=== PATIENT | male | born 1945 ===

== ENCOUNTER 2022-09-03 21:01 | Inpatient (IN) | payer MEDICARE, OTHER ==
[~2022-09-03] VITALS: Ht 182.9 cm; Wt 85.3 kg
--- NOTE | 2022-09-03 21:19 | NUR ---
Dr. Goldsmith at bedside for MSE.
[2022-09-03] MEDS ORDERED: LORA0.5T48 PO (21:23)
[2022-09-03] MEDS ORDERED: INDO50CA91 PO (21:23)
[2022-09-03] MEDS ORDERED: BUDE10.2 IH (21:23)
[2022-09-03] MEDS ORDERED: POTA20TA11 PO (21:23)
[2022-09-03] MEDS ORDERED: ASPI81TA31 PO (21:23)
[2022-09-03] MEDS ORDERED: SERT50TA PO (21:23)
[2022-09-03] MEDS ORDERED: ATOR80TA PO (21:23)
[2022-09-03] MEDS ORDERED: TERA10CA4 PO (21:23)
[2022-09-03] MEDS ORDERED: DIPH25TA25 PO (21:23)
[2022-09-03] MEDS ORDERED: FURO20TA4 PO (21:23)
[2022-09-03] MEDS ORDERED: HYDR-3976 PO (21:23)
[2022-09-03] MEDS ORDERED: METO-356 PO (21:23)
[2022-09-03] MEDS ORDERED: TIOT18CA3 IH (21:23)
[2022-09-03] MEDS ORDERED: ALBU2.5V38 IH (21:23)
[2022-09-03] MEDS ORDERED: CHOLECALCIFEROL 1,000 UNIT TABLET PO SCH (21:30)
[2022-09-03] MEDS ORDERED: CHOLECALCIFEROL 1,000 UNIT TABLET ONE (21:36)
[2022-09-03 22:05] LABS: THYROID STIMULATING HORMONE 2.004 mIU/mL (0.358-3.740)
[2022-09-03 22:22] LABS: MAGNESIUM 2.1 mg/dL (1.8-2.4)
--- NOTE | 2022-09-03 22:30 | NUR ---
Pt medically cleared by Dr. Goldsmith.
--- NOTE | 2022-09-03 23:00 | NUR ---
Report given to Josselyn [facility].
[2022-09-03 23:45] VITALS: BP 143/98
[2022-09-04] MEDS ORDERED: MAG HYDROX/AL HYDROX/SIMETH 30 ML LIQUID UDC PO PRN (01:00)
[2022-09-04] MEDS ORDERED: MAGNESIUM HYDROXIDE 30 ML LIQUID UDC PO PRN (01:00)
--- NOTE | 2022-09-04 01:00 | NUR ---
Admission note : Patient is a 77 year old male, was brought to [facility] by ambulance from [facility] in [place]. The patient is on a 510 for GD. Per the hold, the patient walked from his home to a local elementary school and stated " My is missing and my stepdaughter and her are trying to kill me". The patient is in early stages of dementia and unable to verbalize a plan of care for himself. Upon face to face evaluation, the patient is calm and cooperative but tangental. He continually would ruminate on his past experiences in the [employer] in [place] all during the interview process. The patient showed poor insight to his memory problems and was easily confusing and intertwining his past memories with his present reality. According to the records, the is elderly and in the hospital at this time. It seems that this patient is the primary caregiver and still drives. The patient has multiple medical problems including insomnia. This medical underwriter was able to engage in meaningful conversation with the patient but it was difficult because the patient is hard off hearing and gets easily confused. The VS are stable, a Patients Rights handbook and Advisement were provided. Orientation to the unit and the plan of care were discussed. The patient is cooperative , pleasant, compliant and interesting to talk too. Safety Stratiges are in place at this time. No acute issues noted at this time. Reorientation and reassurance will be given as needed.
[2022-09-04] MEDS: TEMAZEPAM 7.5 MG CAPSULE PO PRN (01:21)
[2022-09-04] MEDS ORDERED: RIVA10TA PO (01:53)
[2022-09-04] MEDS ORDERED: SERT50TA PO (01:53)
[2022-09-04] MEDS ORDERED: METO25TA3 PO (01:53)
[2022-09-04] MEDS ORDERED: TERA10CA4 PO (01:53)
[2022-09-04] MEDS ORDERED: TIOT4MIS2 IH (01:53)
[2022-09-04] MEDS ORDERED: POTA-88 PO (01:53)
--- NOTE | 2022-09-04 07:00 | NUR ---
GPS Nursing notes: Patient sitting in his bed, reading, friendly on approach, speech is clear, stated he slept well. Denies pain or discomforts at this time. Fall and safety precaution implemented, emotional support provided.
[2022-09-04 07:50] VITALS: BP 126/87
[2022-09-04] MEDS ORDERED: ALBUTEROL SULFATE 2.5 MG/3 ML NEBU NEB PRN (12:00)
--- NOTE | 2022-09-04 13:44 | NUR ---
GPS Nursing Notes: Patient in his room, cooperative, isolative, denies pain or discomforts, denies SI/HI/VH/AH, patient stated , "They are bringing Antennas with wires". 1:1 verbal interacting with patient, emotional support provided.
--- NOTE | 2022-09-04 14:45 | NUR ---
RAHUL Family Contact: RAHUL spoke with pt's sister, Cecelia ([phone]) regarding pt's current status. Cecelia stated she lives in [place] and will be involved via telephone. Cecelia was grateful for the teams help for the pt. per Cecelia, he lives with his , Kelsey ([phone]) and he is self-responsible. Cecelia stated a SNF would be great for him due to his delusions. RAHUL will continue to work with pt, his family and MD to ensure a safe and proper discharge plan.
--- NOTE | 2022-09-04 15:04 | NUR ---
RAHUL Initial Discharge Note: Pt currently resides at [address] [facility] [place] [address] ([phone]) with his , Kelsey ([phone]). Pt's sister, Cecelia is also involved in pt's care ([phone]). Pt's plan is to continue care at home. RAHUL will continue to work with pt, family and MD to ensure a safe and proper discharge plan.
[2022-09-04 16:32] VITALS: BP 139/86
--- NOTE | 2022-09-04 16:42 | NUR ---
GPS: Nursing noted: 5250 [facility] Request: Staff gave capy of 5250 to patient. Explained 5250 and informed patient that a certification review hearing will be held within four days and patient 's right advocate will call him to provide assistance with the hearing and to answer any of his questions. The court has been notified of this certification via [facility] portal on this day.
[2022-09-04] MEDS: ACETAMINOPHEN 325 MG TABLET PO PRN (16:49)
[2022-09-04] MEDS: ALBUTEROL SULFATE 2.5 MG/3 ML NEBU NEB PRN (17:35)
[2022-09-04 19:57] VITALS: BP 145/97
[2022-09-04] MEDS: SERTRALINE HCL 50 MG TABLET PO SCH (20:37)
[2022-09-04] MEDS: ATORVASTATIN 40 MG TABLET PO SCH (20:37)
[2022-09-04] MEDS: TERAZOSIN 5 MG CAPSULE PO SCH (20:38)
[2022-09-04] MEDS ORDERED: FLUTICASONE/SALMETEROL 250/50 INHALER INH SCH (21:00)
--- NOTE | 2022-09-05 07:00 | NUR ---
GPS Nursing note: Patient is in room quiet, isolative, denies pain or discomforts at this time. Will continue to monitor.
[2022-09-05] MEDS: ACETAMINOPHEN 325 MG TABLET PO PRN ×2 (07:09→19:46)
[2022-09-05 07:30] VITALS: BP 121/81
[2022-09-05] MEDS: POTASSIUM CHLORIDE 20 MEQ TAB.PRT.SR PO SCH (09:06)
[2022-09-05] MEDS: METOPROLOL SUCCINATE XL 25 MG TAB.SR.24H PO SCH (09:07)
[2022-09-05] MEDS: ASPIRIN 81 MG TAB.CHEW PO SCH (09:07)
[2022-09-05] MEDS: FUROSEMIDE 20 MG TABLET PO SCH (09:07)
[2022-09-05] MEDS: FLUTICASONE/VILANTEROL 1 EACH BLST.W.DEV INH SCH (09:07)
--- NOTE | 2022-09-05 15:08 | NUR ---
Firearms Report: Electromyographic Technician completed and submitted a [employer] firearms report for 5150 grave disability certifications. A copy of report has been placed in patient chart.
[2022-09-05 15:27] VITALS: BP 108/66
[2022-09-05 20:00] VITALS: BP 103/74
[2022-09-05] MEDS: ATORVASTATIN 40 MG TABLET PO SCH (20:32)
[2022-09-05] MEDS: SERTRALINE HCL 50 MG TABLET PO SCH (20:32)
[2022-09-05] MEDS: TERAZOSIN 5 MG CAPSULE PO SCH (20:42)
--- NOTE | 2022-09-05 21:33 | NUR ---
PATIENT TOOK ALL 2100 MEDICATIONS ORDERED. NO ISSUES. PATIENT INFORMS RN OF PATIENT'S STORY OF HOW HE GOT INTO [facility]. RN NOTED. ALL NEEDS MET AT THIS TIME. NO ACUTE DISTRESS. ENDORSED CONTINUATION OF CARE TO TOM KING.
[2022-09-05] MEDS: TEMAZEPAM 7.5 MG CAPSULE PO PRN (22:35)
[2022-09-06 07:30] VITALS: BP 118/88
[2022-09-06] MEDS: POTASSIUM CHLORIDE 20 MEQ TAB.PRT.SR PO SCH (08:49)
[2022-09-06] MEDS: FUROSEMIDE 20 MG TABLET PO SCH (08:49)
[2022-09-06] MEDS: FLUTICASONE/VILANTEROL 1 EACH BLST.W.DEV INH SCH (08:50)
[2022-09-06] MEDS: ACETAMINOPHEN 325 MG TABLET PO PRN ×3 (08:50→21:21)
[2022-09-06] MEDS: ASPIRIN 81 MG TAB.CHEW PO SCH (08:51)
[2022-09-06] MEDS: METOPROLOL SUCCINATE XL 25 MG TAB.SR.24H PO SCH (08:53)
[2022-09-06 15:19] VITALS: BP 94/63
--- NOTE | 2022-09-06 19:03 | NUR ---
Up on approach pt seems calm but depressed, guarded. Pt is cooperative with nursing care and compliant with medications. Pt was encourage to ventilate feeling and stated Im worried about my being in a different hospital". hospitality workers spoke with pt sister and told pt that his sister said his is doing well. Reassurance provided. Encourage pt to eat meals in the dinning room and pt was compliant. Continue to monitor for safety , Continue with treatment plan.
[2022-09-06 20:10] VITALS: BP 104/71
[2022-09-06] MEDS: SERTRALINE HCL 50 MG TABLET PO SCH (21:21)
[2022-09-06] MEDS: TERAZOSIN 5 MG CAPSULE PO SCH (21:21)
[2022-09-06] MEDS: ATORVASTATIN 40 MG TABLET PO SCH (21:22)
[2022-09-06] MEDS: TEMAZEPAM 7.5 MG CAPSULE PO PRN (22:46)
--- NOTE | 2022-09-06 22:53 | NUR ---
Pt stated he is having trouble falling asleep d/t the occasional restlessness, screaming, and yelling in the unit. He requested a sleeping aid/sleeping pill. This nurse gave Temazepam 7.5 mg po prn for help with insomnia. Safety strategies in place. Will continue to monitor.
[2022-09-07 07:30] VITALS: BP 114/69
[2022-09-07 07:47] LABS: HEMATOCRIT 30.1 % (36.7-47.1); MEAN CORPUSCULAR HEMOGLOBIN 24.1 uug (23.8-33.4); MEAN CORPUSCULAR VOLUME 77.5 fL (73.0-96.2); PLATELET COUNT (AUTO) 215 K/uL (152-348)
[2022-09-07] MEDS: ASPIRIN 81 MG TAB.CHEW PO SCH (08:15)
[2022-09-07] MEDS: FLUTICASONE/VILANTEROL 1 EACH BLST.W.DEV INH SCH (08:15)
[2022-09-07] MEDS: METOPROLOL SUCCINATE XL 25 MG TAB.SR.24H PO SCH (08:16)
[2022-09-07] MEDS: POTASSIUM CHLORIDE 20 MEQ TAB.PRT.SR PO SCH (08:16)
[2022-09-07] MEDS: FUROSEMIDE 20 MG TABLET PO SCH (08:16)
[2022-09-07 08:36] LABS: THYROID STIMULATING HORMONE 1.804 mIU/mL (0.358-3.740)
[2022-09-07 08:51] LABS: ASPARTATE AMINOTRANSFERASE 27 U/L (15-37); BILIRUBIN,TOTAL 0.3 mg/dL (0.2-1.0); CARBON DIOXIDE 28 mmol/L (21-32); CHLORIDE 108 mmol/L (98-107); CHOLESTEROL 101 mg/dL (<200); CREATININE 0.8 mg/dL (0.6-1.3); GLUCOSE 91 mg/dL (74-106); HDL CHOLESTEROL 55 mg/dL (40-60); MAGNESIUM 1.9 mg/dL (1.8-2.4); PHOSPHOROUS 3.1 mg/dL (2.5-4.9); POTASSIUM 3.8 mmol/L (3.5-5.1); TRIGLYCERIDES 49 MG/DL (30-150); UREA NITROGEN, BLOOD 22 mg/dL (7-18)
[2022-09-07 09:43] LABS: ALANINE AMINOTRANSFERASE 41 U/L (16-63); ALKALINE PHOSPHATASE 82 U/L (50-136)
[2022-09-07] MEDS: ACETAMINOPHEN 325 MG TABLET PO PRN ×2 (09:56→16:35)
[2022-09-07 15:24] VITALS: BP 132/66
--- NOTE | 2022-09-07 15:54 | NUR ---
Patient had a court hearing today, milk condenser Pako Bobo gave 14 Day hold probable cause for GD only.
--- NOTE | 2022-09-07 18:30 | NUR ---
Pt is calm on approach, Pleasantly confused and forgetful at times. Pt is ambulatory Self care. Pt is compliant with care and medications.Pt attends group activities and socializes with peers. Continue to monitor for safety continue with treatment plan.
[2022-09-07 20:01] VITALS: BP 133/80
[2022-09-07] MEDS: TERAZOSIN 5 MG CAPSULE PO SCH (20:23)
[2022-09-07] MEDS: ATORVASTATIN 40 MG TABLET PO SCH (20:23)
[2022-09-07] MEDS: SERTRALINE HCL 50 MG TABLET PO SCH (20:23)
[2022-09-07] MEDS: TEMAZEPAM 7.5 MG CAPSULE PO PRN (21:05)
--- NOTE | 2022-09-07 21:49 | NUR ---
GPS: Pt.is anxious at times. Re-assured and re-directed prn. Med.compliant. Insight and judgment remains impaired. Safety emphasized. Will continue to monitor. Denies wanting to harm self when asked by staff.
[2022-09-08] MEDS: ACETAMINOPHEN 325 MG TABLET PO PRN ×3 (00:29→17:52)
[2022-09-08 08:00] VITALS: BP 131/79
[2022-09-08] MEDS: POTASSIUM CHLORIDE 20 MEQ TAB.PRT.SR PO SCH (10:01)
[2022-09-08] MEDS: ASPIRIN 81 MG TAB.CHEW PO SCH (10:01)
[2022-09-08] MEDS: FUROSEMIDE 20 MG TABLET PO SCH (10:01)
[2022-09-08] MEDS: METOPROLOL SUCCINATE XL 25 MG TAB.SR.24H PO SCH (10:03)
[2022-09-08] MEDS: FLUTICASONE/VILANTEROL 1 EACH BLST.W.DEV INH SCH (10:04)
[2022-09-08] MEDS: CYANOCOBALAMIN 1,000 MCG TABLET PO SCH (10:05)
--- NOTE | 2022-09-08 14:02 | NUR ---
RAHUL Family Contact: RAHUL spoke with pt's sister, Cecelia ([phone]) regarding pt's current status. Cecelia is appreciative of the pt's care. Cecelia is aware pt's hold is extended to 14 day. Pt will return home to his upon discharge with his own taxi transportation per pt.
[2022-09-08 16:00] VITALS: BP 120/73
--- NOTE | 2022-09-08 18:27 | NUR ---
pt is awake, able to state his need. requested PRN Tylenol twice for head ache which was effective.
[2022-09-08] MEDS: SERTRALINE HCL 50 MG TABLET PO SCH (20:46)
[2022-09-08] MEDS: ATORVASTATIN 40 MG TABLET PO SCH (20:46)
[2022-09-08] MEDS: TERAZOSIN 5 MG CAPSULE PO SCH (20:57)
[2022-09-08] MEDS: TEMAZEPAM 7.5 MG CAPSULE PO PRN (21:05)
[2022-09-08 21:07] VITALS: BP 103/72
[2022-09-08] MEDS: LORAZEPAM 1 MG TABLET PO PRN (23:39)
[2022-09-09] MEDS: ACETAMINOPHEN 325 MG TABLET PO PRN ×3 (03:05→23:07)
--- NOTE | 2022-09-09 06:06 | NUR ---
Pt was restless, anxious, not able to sleep. Pt asked for a sleeping PRN but it was not effective. Pt asked to have and anxiety PRN and was able to sleep for only 2 Hours. Reassurance Provided. Fall and safety measures put in place. Continue to monitor for safety, continue with treatment plan
[2022-09-09 07:42] VITALS: BP 114/81
[2022-09-09] MEDS: ASPIRIN 81 MG TAB.CHEW PO SCH (08:10)
[2022-09-09] MEDS: METOPROLOL SUCCINATE XL 25 MG TAB.SR.24H PO SCH (08:10)
[2022-09-09] MEDS: FUROSEMIDE 20 MG TABLET PO SCH (08:10)
[2022-09-09] MEDS: CYANOCOBALAMIN 1,000 MCG TABLET PO SCH (08:10)
[2022-09-09] MEDS: POTASSIUM CHLORIDE 20 MEQ TAB.PRT.SR PO SCH (08:10)
[2022-09-09] MEDS: FLUTICASONE/VILANTEROL 1 EACH BLST.W.DEV INH SCH (08:10)
[2022-09-09 16:17] VITALS: BP 123/77
[2022-09-09 20:00] VITALS: BP 117/75
[2022-09-09] MEDS: SERTRALINE HCL 50 MG TABLET PO SCH (20:24)
[2022-09-09] MEDS: MELATONIN 3 MG TABLET PO SCH (20:24)
[2022-09-09] MEDS: TERAZOSIN 5 MG CAPSULE PO SCH (20:25)
[2022-09-09] MEDS: ATORVASTATIN 10 MG TABLET PO SCH (21:29)
[2022-09-09] MEDS: TEMAZEPAM 7.5 MG CAPSULE PO PRN (21:29)
[2022-09-10] MEDS: ALBUTEROL SULFATE 2.5 MG/3 ML NEBU NEB PRN (04:31)
[2022-09-10 07:49] VITALS: BP 103/77
[2022-09-10] MEDS: POTASSIUM CHLORIDE 20 MEQ TAB.PRT.SR PO SCH (08:49)
[2022-09-10] MEDS: FUROSEMIDE 20 MG TABLET PO SCH (08:49)
[2022-09-10] MEDS: ASPIRIN 81 MG TAB.CHEW PO SCH (08:50)
[2022-09-10] MEDS: CYANOCOBALAMIN 1,000 MCG TABLET PO SCH (08:50)
[2022-09-10] MEDS: METOPROLOL SUCCINATE XL 25 MG TAB.SR.24H PO SCH (08:51)
[2022-09-10] MEDS: FLUTICASONE/VILANTEROL 1 EACH BLST.W.DEV INH SCH (08:52)
[2022-09-10] MEDS: CYANOCOBALAMIN 1000 MCG/ML VIAL IM SCH (08:52)
[2022-09-10] MEDS: ACETAMINOPHEN 325 MG TABLET PO PRN ×2 (09:04→21:14)
--- NOTE | 2022-09-10 14:34 | NUR ---
Received Pt is awake, cooperative, calm on approach, cannot say for sure why he is here. Pt was compliant with medications, requested PRN Tylenol for back pain which was effective.
[2022-09-10 16:20] VITALS: BP 123/77
[2022-09-10 20:06] VITALS: BP 116/73
[2022-09-10] MEDS: SERTRALINE HCL 50 MG TABLET PO SCH (21:14)
[2022-09-10] MEDS: MELATONIN 3 MG TABLET PO SCH (21:14)
[2022-09-10] MEDS: ATORVASTATIN 10 MG TABLET PO SCH (21:14)
[2022-09-10] MEDS: TERAZOSIN 5 MG CAPSULE PO SCH (21:16)
[2022-09-10] MEDS: TEMAZEPAM 7.5 MG CAPSULE PO PRN (22:05)
--- NOTE | 2022-09-11 06:16 | NUR ---
Pt is restless on approach and can be confused and forgetful at times. Pt does not have a bailable plan of care. Pt is compliant with medications and nursing care. Pt ask for a sleeping PRN but pt was able to sleep only 4.0 hours on and off. Pt got up and took a shower. Reassurance provided, safety measures in place. Continue to monitor for safety, continue with treatment plan.
[2022-09-11] MEDS: ACETAMINOPHEN 325 MG TABLET PO PRN ×3 (06:40→18:58)
--- NOTE | 2022-09-11 07:30 | NUR ---
GPS Nursing notes: Patient is awake, by nurses station this morning with no S/S of distress noted. Will continue to monitor.
[2022-09-11] MEDS: FUROSEMIDE 20 MG TABLET PO SCH (08:04)
[2022-09-11] MEDS: ASPIRIN 81 MG TAB.CHEW PO SCH (08:04)
[2022-09-11] MEDS: POTASSIUM CHLORIDE 20 MEQ TAB.PRT.SR PO SCH (08:05)
[2022-09-11] MEDS: METOPROLOL SUCCINATE XL 25 MG TAB.SR.24H PO SCH (08:05)
[2022-09-11] MEDS: CYANOCOBALAMIN 1,000 MCG TABLET PO SCH (08:06)
[2022-09-11] MEDS: FLUTICASONE/VILANTEROL 1 EACH BLST.W.DEV INH SCH (08:06)
[2022-09-11 08:22] VITALS: BP 130/98
[2022-09-11] MEDS: CYANOCOBALAMIN 1000 MCG/ML VIAL IM SCH (08:28)
--- NOTE | 2022-09-11 12:18 | NUR ---
RAHUL Family Contact: RAHUL spoke with pt's sister, Cecelia ([phone]) regarding pt's current status. Cecelia is appreciative of the pt's care.
--- NOTE | 2022-09-11 13:39 | NUR ---
GPS Nursing notes/ Protective Clothing Issuer Visit: Patient up and about, able to makes needs known, no S/S of distress noted. Patient was seen by Protective Clothing Issuer this morning, per Protective Clothing Issuer, toe nails were trim by Protective Clothing Issuer, patient tolerated well, no new orders by Protective Clothing Issuer at this time.
[2022-09-11 16:24] VITALS: BP 113/71
--- NOTE | 2022-09-11 18:31 | NUR ---
GPS Nursing notes: Patient is cooperative, medication compliance, denies pain or discomforts at this time, participated with groups, following directions. Denies SI/HI/AH/DIAZ, patient is worry about his the is in the hospital, patient spoke with family member to re-assure everting was ok. Emotional support provided. Will continue to monitor.
[2022-09-11 19:57] VITALS: BP 109/62
[2022-09-11] MEDS: ATORVASTATIN 10 MG TABLET PO SCH (20:41)
[2022-09-11] MEDS: SERTRALINE HCL 50 MG TABLET PO SCH (20:41)
[2022-09-11] MEDS: MELATONIN 3 MG TABLET PO SCH (20:41)
[2022-09-11] MEDS: TERAZOSIN 5 MG CAPSULE PO SCH (20:41)
[2022-09-11] MEDS: TEMAZEPAM 7.5 MG CAPSULE PO PRN (22:09)
[2022-09-12] MEDS: ACETAMINOPHEN 325 MG TABLET PO PRN ×2 (01:58→10:35)
[2022-09-12] MEDS: ALBUTEROL SULFATE 2.5 MG/3 ML NEBU NEB PRN (05:11)
--- NOTE | 2022-09-12 06:28 | NUR ---
GPS: Pt.continues to sleep poorly last night despite receiving a sleeping pill. Remains med.compliant and cooperative with his plan of care. Denies wanting to harm self. Safe environment provided. Needs attended.
[2022-09-12 08:13] VITALS: BP 123/82
[2022-09-12] MEDS: ASPIRIN 81 MG TAB.CHEW PO SCH (08:43)
[2022-09-12] MEDS: FUROSEMIDE 20 MG TABLET PO SCH (08:43)
[2022-09-12] MEDS: POTASSIUM CHLORIDE 20 MEQ TAB.PRT.SR PO SCH (08:43)
[2022-09-12] MEDS: CYANOCOBALAMIN 1,000 MCG TABLET PO SCH (08:44)
[2022-09-12] MEDS: METOPROLOL SUCCINATE XL 25 MG TAB.SR.24H PO SCH (08:45)
[2022-09-12] MEDS: FLUTICASONE/VILANTEROL 1 EACH BLST.W.DEV INH SCH (08:45)
--- NOTE | 2022-09-12 10:40 | NUR ---
Patient is given Tylenol 650 mg at 10:35 for back pain, will be monitored for effectiveness.
--- NOTE | 2022-09-12 12:23 | NUR ---
RAHUL Family Contact: RAHUL spoke with pt's sister, Cecelia ([phone]) regarding pt's current status and discharge plan. Per Cecelia, pt will be provided private vehicle transportation by his stepdaughter, Shahnaz ([phone]) upon discharge. Cecelia is aware that pt does not have a discharge date yet.
--- NOTE | 2022-09-12 15:44 | NUR ---
Received patient sleeping in his room. Patient is cooperative with nursing care, compliant with medications, talkative, sociable, confused and disoriented at times, forgetful. Patient is A/O X 2 to person. Patient requires minimal assistance with ADL. Reassurance given. Fall and safety precautions implemented.
[2022-09-12 16:20] VITALS: BP 105/64
[2022-09-12 20:00] VITALS: BP 119/78
[2022-09-12] MEDS: MELATONIN 3 MG TABLET PO SCH (20:39)
[2022-09-12] MEDS: ATORVASTATIN 10 MG TABLET PO SCH (20:39)
[2022-09-12] MEDS: TERAZOSIN 5 MG CAPSULE PO SCH (20:40)
[2022-09-12] MEDS: TEMAZEPAM 7.5 MG CAPSULE PO PRN (22:56)
[2022-09-13] MEDS: ALBUTEROL SULFATE 2.5 MG/3 ML NEBU NEB PRN (06:44)
[2022-09-13 07:54] VITALS: BP 123/93
[2022-09-13] MEDS: ASPIRIN 81 MG TAB.CHEW PO SCH (08:34)
[2022-09-13] MEDS: POTASSIUM CHLORIDE 20 MEQ TAB.PRT.SR PO SCH (08:35)
[2022-09-13] MEDS: CYANOCOBALAMIN 1,000 MCG TABLET PO SCH (08:35)
[2022-09-13] MEDS: METOPROLOL SUCCINATE XL 25 MG TAB.SR.24H PO SCH (08:36)
[2022-09-13] MEDS: FUROSEMIDE 20 MG TABLET PO SCH (08:36)
[2022-09-13] MEDS: FLUTICASONE/VILANTEROL 1 EACH BLST.W.DEV INH SCH (08:37)
[2022-09-13] MEDS: ACETAMINOPHEN 325 MG TABLET PO PRN ×2 (08:43→15:53)
--- NOTE | 2022-09-13 08:49 | NUR ---
Patient is given Tylenol 650 mg at 08:43 for lower back pain, will be monitored for effectiveness.
[2022-09-13 15:29] VITALS: BP 115/75
--- NOTE | 2022-09-13 15:39 | NUR ---
Received patient awake in his room. Patient is talkative, cooperative with nursing care, compliant with medications, needy, engage in social activities. Patient is A/O X 2 to person, place. Patient is encourage to vent feeling and emotions. Fall and safety precautions implemented.
--- NOTE | 2022-09-13 15:56 | NUR ---
Patient is given Tylenol 650 mg at 15:53 for lower back pain, will be monitored for effectiveness.
[2022-09-13 20:05] VITALS: BP 115/71
[2022-09-13] MEDS: MELATONIN 3 MG TABLET PO SCH (20:21)
[2022-09-13] MEDS: TERAZOSIN 5 MG CAPSULE PO SCH (20:21)
[2022-09-13] MEDS: SERTRALINE HCL 100 MG TABLET PO SCH (20:21)
[2022-09-13] MEDS: ATORVASTATIN 10 MG TABLET PO SCH (20:21)
[2022-09-13] MEDS: TEMAZEPAM 7.5 MG CAPSULE PO PRN (21:41)
[2022-09-13] MEDS: LORAZEPAM 1 MG TABLET PO PRN (23:02)
[2022-09-14] MEDS: ALBUTEROL SULFATE 2.5 MG/3 ML NEBU NEB PRN ×2 (04:38→21:31)
[2022-09-14 07:30] VITALS: BP 119/62
[2022-09-14] MEDS: FUROSEMIDE 20 MG TABLET PO SCH (09:33)
[2022-09-14] MEDS: ASPIRIN 81 MG TAB.CHEW PO SCH (09:33)
[2022-09-14] MEDS: POTASSIUM CHLORIDE 20 MEQ TAB.PRT.SR PO SCH (09:34)
[2022-09-14] MEDS: CYANOCOBALAMIN 1,000 MCG TABLET PO SCH (09:34)
[2022-09-14] MEDS: FLUTICASONE/VILANTEROL 1 EACH BLST.W.DEV INH SCH (09:36)
[2022-09-14] MEDS: METOPROLOL SUCCINATE XL 25 MG TAB.SR.24H PO SCH (09:36)
[2022-09-14] MEDS: ACETAMINOPHEN 325 MG TABLET PO PRN (13:24)
[2022-09-14 15:33] VITALS: BP 96/63
--- NOTE | 2022-09-14 17:13 | NUR ---
Patient is talkative, cooperative with nursing care, compliant with medications, forgetful and confused at times, engage in group activities, interacts with peers. Tylenol 650 mg is given at 13:24 for lower back pain, will be monitored for effectiveness. Active listening provided. Fall and safety precautions implemented.
[2022-09-14 20:14] VITALS: BP 100/58
[2022-09-14] MEDS: MELATONIN 3 MG TABLET PO SCH (21:13)
[2022-09-14] MEDS: TERAZOSIN 5 MG CAPSULE PO SCH (21:13)
[2022-09-14] MEDS: ATORVASTATIN 10 MG TABLET PO SCH (21:13)
[2022-09-14] MEDS: SERTRALINE HCL 100 MG TABLET PO SCH (21:13)
--- NOTE | 2022-09-14 21:34 | NUR ---
Patient had an episode of vomiting this shift at 2125 hours. Pt also stated that he had thrown up on the previous shift/earlier today. This nurse contacted his doctor (Dr. Qureshi) for orders. New order given: Zofran 4 mg po q 6 hrs for n/v. Pt took the medication without any negative symptoms. Safety measures implemented. Will continue to monitor.
[2022-09-14] MEDS: ONDANSETRON HCL 4 MG TABLET PO PRN (21:50)
[2022-09-15] MEDS: ACETAMINOPHEN 325 MG TABLET PO PRN ×3 (04:22→18:02)
[2022-09-15] MEDS: ONDANSETRON HCL 4 MG TABLET PO PRN (04:23)
--- NOTE | 2022-09-15 04:30 | NUR ---
Pt requested medication for a headache and for nausea. Gave Tylenol 650mg po prn, and Zofran. Will continue to monitor.
[2022-09-15 08:17] VITALS: BP 86/59
[2022-09-15] MEDS: METOPROLOL SUCCINATE XL 25 MG TAB.SR.24H PO SCH (09:00)
[2022-09-15] MEDS: FUROSEMIDE 20 MG TABLET PO SCH (09:00)
[2022-09-15] MEDS: POTASSIUM CHLORIDE 20 MEQ TAB.PRT.SR PO SCH (09:04)
[2022-09-15] MEDS: CYANOCOBALAMIN 1,000 MCG TABLET PO SCH (09:04)
[2022-09-15] MEDS: ASPIRIN 81 MG TAB.CHEW PO SCH (09:04)
[2022-09-15] MEDS: FLUTICASONE/VILANTEROL 1 EACH BLST.W.DEV INH SCH (09:06)
--- NOTE | 2022-09-15 12:55 | NUR ---
Received patient is awake, cooperative, calm on approach, cannot say for sure why he is here. Pt was compliant with medications, requested PRN Tylenol for back pain which was effective.
[2022-09-15 15:56] VITALS: BP 105/96
[2022-09-15 19:30] VITALS: BP 101/61
[2022-09-15] MEDS: MELATONIN 3 MG TABLET PO SCH (21:27)
[2022-09-15] MEDS: TERAZOSIN 5 MG CAPSULE PO SCH (21:27)
[2022-09-15] MEDS: ATORVASTATIN 10 MG TABLET PO SCH (21:27)
[2022-09-15] MEDS: SERTRALINE HCL 100 MG TABLET PO SCH (21:27)
[2022-09-15] MEDS: LORAZEPAM 1 MG TABLET PO PRN (23:37)
[2022-09-16] MEDS: TEMAZEPAM 7.5 MG CAPSULE PO PRN ×2 (01:27→21:09)
--- NOTE | 2022-09-16 01:28 | NUR ---
Pt requested medication to help with falling asleep. Gave Temazepam 7.5mg po prn for insomnia. Will continue to monitor.
[2022-09-16 07:59] VITALS: BP 103/67
--- NOTE | 2022-09-16 08:11 | NUR ---
GPS Nursing notes: Patient is up this morning, waling with steady gait, denies pain or discomforts at this time.
[2022-09-16] MEDS: CYANOCOBALAMIN 1,000 MCG TABLET PO SCH (08:32)
[2022-09-16] MEDS: POTASSIUM CHLORIDE 20 MEQ TAB.PRT.SR PO SCH (08:32)
[2022-09-16] MEDS: FUROSEMIDE 20 MG TABLET PO SCH (08:33)
[2022-09-16] MEDS: ASPIRIN 81 MG TAB.CHEW PO SCH (08:33)
[2022-09-16] MEDS: FLUTICASONE/VILANTEROL 1 EACH BLST.W.DEV INH SCH (08:34)
[2022-09-16] MEDS: METOPROLOL SUCCINATE XL 25 MG TAB.SR.24H PO SCH (08:36)
[2022-09-16] MEDS: ACETAMINOPHEN 325 MG TABLET PO PRN ×3 (10:11→22:06)
--- NOTE | 2022-09-16 13:16 | NUR ---
GPS Nursing notes: Patient up and about, denies pain or discomforts at this time, gait is steady. follows directions, medications compliance. Fall and safety precautions implemented, emotional support provided. Will continue to monitor.
[2022-09-16 16:35] VITALS: BP 105/70
[2022-09-16] MEDS: ATORVASTATIN 10 MG TABLET PO SCH (20:09)
[2022-09-16] MEDS: MELATONIN 3 MG TABLET PO SCH (20:09)
[2022-09-16] MEDS: SERTRALINE HCL 100 MG TABLET PO SCH (20:10)
[2022-09-16] MEDS: TERAZOSIN 5 MG CAPSULE PO SCH (20:10)
[2022-09-16 20:46] VITALS: BP 92/65
[2022-09-16] MEDS: LORAZEPAM 1 MG TABLET PO PRN (22:55)
--- NOTE | 2022-09-17 04:19 | NUR ---
Pt is calm on approach . Pt does not have a bailable plan of care. Pt is compliant with medications and nursing care. Pt ask for a sleeping PRN but is not affective pt only slept 3.45 hours on and off. Reassurance provided, safety measures in place. Continue to monitor for safety, continue with treatment plan.
[2022-09-17] MEDS: ALBUTEROL SULFATE 2.5 MG/3 ML NEBU NEB PRN (05:09)
[2022-09-17 08:02] VITALS: BP 98/71
[2022-09-17] MEDS: ASPIRIN 81 MG TAB.CHEW PO SCH (08:37)
[2022-09-17] MEDS: CYANOCOBALAMIN 1,000 MCG TABLET PO SCH (08:37)
[2022-09-17] MEDS: FUROSEMIDE 20 MG TABLET PO SCH (08:38)
[2022-09-17] MEDS: POTASSIUM CHLORIDE 20 MEQ TAB.PRT.SR PO SCH (08:38)
[2022-09-17] MEDS: FLUTICASONE/VILANTEROL 1 EACH BLST.W.DEV INH SCH (08:39)
[2022-09-17] MEDS: METOPROLOL SUCCINATE XL 25 MG TAB.SR.24H PO SCH (08:39)
[2022-09-17] MEDS: ACETAMINOPHEN 325 MG TABLET PO PRN ×2 (10:23→16:16)
--- NOTE | 2022-09-17 14:19 | NUR ---
Received patient is awake, cooperative, calm on approach. Pt was compliant with medications, requested PRN Tylenol for back pain and headache which was effective. will continue monitoring for safety ,will be discharged home in am.
[2022-09-17 16:20] VITALS: BP 104/63
[2022-09-17 20:07] VITALS: BP 124/80
[2022-09-17] MEDS: ATORVASTATIN 10 MG TABLET PO SCH (20:32)
[2022-09-17] MEDS: MELATONIN 3 MG TABLET PO SCH (20:32)
[2022-09-17] MEDS: TERAZOSIN 5 MG CAPSULE PO SCH (20:34)
[2022-09-17] MEDS: SERTRALINE HCL 100 MG TABLET PO SCH (20:34)
[2022-09-17] MEDS: TEMAZEPAM 7.5 MG CAPSULE PO PRN (22:10)
--- NOTE | 2022-09-17 22:10 | NUR ---
Patient requested to have a sleeping pill. Reminded of the medications purpose and gave Temazepam 7.5mg po prn for insomnia. Will continue to monitor.
[2022-09-17] MEDS: LORAZEPAM 1 MG TABLET PO PRN (23:43)
--- NOTE | 2022-09-17 23:43 | NUR ---
Patient requested Ativan for increased anxiety. Pt did not fall asleep after giving Temazepam roughly 100 mins ago. Gave Lorazepam 1mg po prn. Safety measures in place. Will continue to monitor.
[2022-09-18] MEDS: ACETAMINOPHEN 325 MG TABLET PO PRN ×2 (01:25→08:40)
[2022-09-18] MEDS: ALBUTEROL SULFATE 2.5 MG/3 ML NEBU NEB PRN (04:12)
--- NOTE | 2022-09-18 04:48 | NUR ---
Patient requested for prn breathing treatment. No s/s of resp distress at time of request. O2Sat 98% room air. Notified RT for Ventolin prn nebulizer treatment. Will continue to monitor.
--- NOTE | 2022-09-18 06:58 | NUR ---
Although AOx3, pt can still be intrusive and needy at times asking for prn medications before the time allows. Even after re-explanation of his scheduled and as-needed medications frequency, patient still asks before hand. Will continue to remind/re-educate.
[2022-09-18 08:04] VITALS: BP 113/81
[2022-09-18] MEDS: CYANOCOBALAMIN 1,000 MCG TABLET PO SCH (08:40)
[2022-09-18] MEDS: ASPIRIN 81 MG TAB.CHEW PO SCH (08:40)
[2022-09-18] MEDS: POTASSIUM CHLORIDE 20 MEQ TAB.PRT.SR PO SCH (08:41)
[2022-09-18] MEDS: FUROSEMIDE 20 MG TABLET PO SCH (08:41)
[2022-09-18 08:42] VITALS: BP 113/81
[2022-09-18] MEDS: FLUTICASONE/VILANTEROL 1 EACH BLST.W.DEV INH SCH (08:42)
[2022-09-18] MEDS: METOPROLOL SUCCINATE XL 25 MG TAB.SR.24H PO SCH (08:42)
--- NOTE | 2022-09-18 09:45 | NUR ---
RAHUL Discharge Note: Pt will be discharged home located at [address] [place] [address] via pts [employer]son ([phone]) private vehicle transportation at 11AM. RAHUL spoke with Shahnaz and pts sister, Cecelia ([phone]) who are aware and agreeable with the discharge plan. Pt is aware and agreeable with discharge plan. Pt is alert and oriented x4, and is cleared by the psychiatrist, Dr. Qureshi and DNP, Dr. Mcdermott to return home. RAHUL will provide [facility] by MDs request upon discharge and additional psychiatrist referrals on Sunday09/18/22. Pt denies any suicidal or homicidal ideation. Pt will follow-up with his outpatient Psychiatrist assigned at [facility] after consultation per Raciel in the office located at [address] [facility] [address], [place] [address] ([phone]) and primary Doctor. Pt presents with calm mood and congruent affect. PHARMACY: [facility] [address] [place] [phone] ([phone].
--- NOTE | 2022-09-18 11:21 | NUR ---
Discharged patient home via pts [employer] private vehicle transportation at 11AM. SW spoke with Shahnaz and pts sister, Cecelia who are aware and agreeable with the discharge plan. Pt is aware and agreeable with discharge plan. Pt is alert and oriented x4, and is cleared by the psychiatrist, Dr. Qureshi and DNP, Dr. Mcdermott to return home. SW will provide [facility] by MDs request upon discharge and additional psychiatrist referrals on Sunday09/18/22. Pt denies any suicidal or homicidal ideation. Pt will follow-up with his outpatient Psychiatrist .discharge instruction given to patient and personal belonging returned to patient.
== END 2022-09-18 11:45 | disposition home health service (06) | DRG 885 ==
LOC: ER 21:03 → GPS 21:27
PROVIDERS: ADMIT Psychiatry & Neurology Psychiatry; ATTEND Nurse Practitioner Acute Care
PROC: 0HBRXZZ Excision of Toe Nail, External Approach (ICD-10-PCS; principal; 2022-09-11)
DX: F33.9 Major depressive disorder, recurrent, unspecified (principal); I11.0 Hypertensive heart disease with heart failure; I50.32 Chronic diastolic (congestive) heart failure; E03.9 Hypothyroidism, unspecified; F41.9 Anxiety disorder, unspecified; L60.3 Nail dystrophy; M79.675 Pain in left toe(s); M79.674 Pain in right toe(s); E78.5 Hyperlipidemia, unspecified; I25.10 Atherosclerotic heart disease of native coronary artery without angina pectoris; J44.9 Chronic obstructive pulmonary disease, unspecified; N40.0 Benign prostatic hyperplasia without lower urinary tract symptoms; E53.8 Deficiency of other specified B group vitamins; G47.00 Insomnia, unspecified; Z62.810 Personal history of physical and sexual abuse in childhood; Z87.891 Personal history of nicotine dependence; H91.93 Unspecified hearing loss, bilateral; R79.89 Other specified abnormal findings of blood chemistry; F03.90 Unspecified dementia, unspecified severity, without behavioral disturbance, psychotic disturbance, mood disturbance, and anxiety; F43.10 Post-traumatic stress disorder, unspecified; D64.9 Anemia, unspecified
CPT/HCPCS: 36415; 83735; 84100; 84443; 85025; 94640; 94664; J3420; Q0162